=== PATIENT | male | born 1995 | race Caucasian/White ===

== ENCOUNTER 2017-08-27 03:05 | Emergency (ER) | payer SELFPAY ==
[~2017-08-27] VITALS: Ht 172.7 cm; Wt 68.5 kg
[~2017-08-27 03:05] MED LIST: IBUP-1542 PO
[2017-08-27 03:11] VITALS: Ht 172.7 cm; Wt 68.5 kg
== END 2017-08-27 03:38 | disposition left against medical advice (07) ==
LOC: FTE 03:05
DX: Z53.21 Procedure and treatment not carried out due to patient leaving prior to being seen by health care provider (principal)